=== PATIENT | female | born 1985 | race Two or more races ===

== ENCOUNTER 2018-12-10 11:37 | Emergency (ER) | payer BC, OTHER ==
[~2018-12-10] VITALS: Ht 162.6 cm; Wt 81.6 kg
[2018-12-10 11:37] VITALS: BP 121/81
[~2018-12-10 11:37] MED LIST: HYDR-1179 PO; HYDR-3165 PO
--- NOTE | 2018-12-10 12:09 | PHYS DOC ---
Past History Past Medical History: No Pertinent History Past Surgical History: No Surgical History Alcohol Use: Occasionally Drug Use: None Adult General Chief Complaint Chief Complaint: WRIST PAIN HPI HPI Patient is a 33-year-old female presents complaining of right wrist pain. It was injured at work approximately 5 days ago. Patient has been in a splint that has not seen a physician for this. She is been taking Motrin 800 mg without any significant relief. Increased pain with movement. Better with holding still but that does not eliminate all of the pain.[] Review of Systems Review of Systems Constitutional: Denies fever or chills [] Eyes: Denies change in visual acuity, redness, or eye pain [] HENT: Denies nasal congestion or sore throat [] Respiratory: Denies cough or shortness of breath [] Cardiovascular: No chest pain or palpitations[] GI: Denies abdominal pain, nausea, vomiting, bloody stools or diarrhea [] : Denies dysuria or hematuria [] Musculoskeletal: Denies back pain, see history of present illness[] Integument: Denies rash or skin lesions [] Neurologic: Denies headache, focal weakness or sensory changes [] Endocrine: Denies polyuria or polydipsia [] All other systems were reviewed and found to be within normal limits, except as documented in this note. Allergies Allergies Allergies Coded Allergies Type Severity Reaction Last Updated Verified No Known Drug Allergies 06/23/15 No Physical Exam Physical Exam Constitutional: Well developed, well nourished, no acute distress, non-toxic appearance. [] HENT: Normocephalic, atraumatic, bilateral external ears normal, oropharynx moist, no oral exudates, nose normal. [] Eyes: PERRLA, EOMI, conjunctiva normal, no discharge. [] Neck: Normal range of motion, no tenderness, supple, no stridor. [] Cardiovascular:Heart rate regular rhythm, no murmur [] Lungs & Thorax: Bilateral breath sounds clear to auscultation [] Abdomen: Not examined. [] Skin: Warm, dry, no erythema, no rash. [] Back: No tenderness, no CVA tenderness. [] Extremities: Tenderness in the distal right wrist. More on the volar aspect. No significant change with axial loading. No elbow tenderness. Normal opposition. FDS, FDP, and extensor mechanisms are intact. Patient is distally neurovascularly intact. A joint above and joined below the injury were evaluated and were normal. The other 3 extremities show: No tenderness, no cyanosis, no clubbing, ROM intact, no edema. [] Neurologic: Alert and oriented X 3, normal motor function, normal sensory function, no focal deficits noted. [] Psychologic: Affect normal, judgement normal, mood normal. [] EKG EKG [] Radiology/Procedures Radiology/Procedures PROCEDURE: WRIST 3V RIGHT Right wrist radiographs History: Right wrist pain for 4 days, heard a pop Comparison none Findings: 3 views of the right wrist are submitted. No acute fracture or dislocation is identified. Impression 1. No acute radiographic abnormality is identified.[] Course & Med Decision Making Course & Med Decision Making Pertinent Labs and Imaging studies reviewed. (See chart for details) ED course: Patient arrived, was placed in bed, and tolerated exam well. X-rays were obtained. The results were shared with the patient and family who voiced understanding. All questions were answered. Patient was discharged in improved condition. Medical decision making: There is no evidence of a fracture or dislocation. No evidence of neurologic, vascular, significant tenderness nor ligamentous injury at this time. Patient does have a splint of provided by her employer who also ordered an outpatient MRI for her. Do not see need for emergent MRI at this time.[] Dragon Disclaimer Dragon Disclaimer This electronic medical record was generated, in whole or in part, using a voice recognition dictation system. Departure Departure: Impression: Primary Impression: Right wrist sprain Disposition: 01 HOME, SELF-CARE Condition: IMPROVED Referrals: KRISTEN AGUILAR (PCP) Follow-up in 2 days Patient Instructions: Wrist Sprain with [facility] Additional Instructions: Follow-up with your regular doctor in 2 days. Keep the MRI appointment as sc heduled. Return to the ER if worsening discomfort or any other concerns. Scripts Hydrocodone Bit/Acetaminophen (NORCO 5-325 TABLET) 1 Each Tablet 1-2 TAB PO Q4-6HRS for severe pain, #20 TAB Prov: LEEANNE SANDRA DO 12/10/18 Meloxicam (MELOXICAM) 7.5 Mg Tablet 7.5 MG PO DAILY for PAIN, #20 TAB Prov: LEEANNE SANDRA DO 12/10/18 Problem Qualifiers Primary Impression: Right wrist sprain Encounter type: initial encounter Qualified Codes: S63.501A - Unspecified sprain of right wrist, initial encounter LEEANNE SANDRA DO Dec 10, 2018 12:09
[2018-12-10] MEDS ORDERED: HYDROcodone/APAP 5/325MG 1 TAB TABLET ONE (12:21)
--- NOTE | 2018-12-10 12:41 | RAD ---
Right wrist radiographs History: Right wrist pain for 4 days, heard a pop Comparison none Findings: 3 views of the right wrist are submitted. No acute fracture or dislocation is identified. Impression 1. No acute radiographic abnormality is identified.
[2018-12-10] MEDS ORDERED: HYDROcodone/APAP 5/325MG 1 TAB TABLET PO ONE (12:45)
[2018-12-10] MEDS ORDERED: MELO7.5T29 PO (13:00)
[2018-12-10] MEDS ORDERED: HYDR-3165 PO (13:00)
== END 2018-12-10 13:05 | disposition home or self-care (01) ==
LOC: ER 11:37
DX: S63.501A Unspecified sprain of right wrist, initial encounter (principal); X50.9XXA Other and unspecified overexertion or strenuous movements or postures, initial encounter; Y93.89 Activity, other specified; Y92.89 Other specified places as the place of occurrence of the external cause; Y99.0 Civilian activity done for income or pay
CPT/HCPCS: 73110; 99284

== ENCOUNTER 2020-03-29 20:42 | Emergency (ER) | payer BC ==
[~2020-03-29] VITALS: Ht 162.6 cm; Wt 81.6 kg
[~2020-03-29 20:42] MED LIST changes: +MELO7.5T29 PO
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
--- NOTE | 2020-03-29 21:57 | RAD ---
Right hand 3 views: Reason for examination: Hyperextension injury with index and middle finger pain. No acute fracture or dislocation is seen. Bone density is normal. No abnormal periosteal reaction is seen. Joint spaces appear to be maintained. IMPRESSION: No acute bony abnormality evident at the right hand. Electronically signed by: Maisha Larsen MD (03/29/2020 9:55 PM) [facility]
[2020-03-29 22:00] VITALS: BP 122/78
== END 2020-03-29 22:00 | disposition home or self-care (01) ==
LOC: ER 20:42
DX: S69.91XA Unspecified injury of right wrist, hand and finger(s), initial encounter (principal); E11.9 Type 2 diabetes mellitus without complications; X50.9XXA Other and unspecified overexertion or strenuous movements or postures, initial encounter; Y93.89 Activity, other specified; Y92.89 Other specified places as the place of occurrence of the external cause; Y99.8 Other external cause status
CPT/HCPCS: 29130; 73130; 99283

== ENCOUNTER 2020-06-15 13:28 | Emergency (ER) | payer BC, OTHER ==
[~2020-06-15] VITALS: Ht 162.6 cm; Wt 81.6 kg
[2020-06-15 13:28] VITALS: BP 137/96
--- NOTE | 2020-06-15 14:07 | PHYS DOC ---
Past History Past Medical History: Diabetes, Migraines Past Surgical History: Cholecystectomy Smoking: Cigarettes Alcohol Use: Occasionally Drug Use: None General Adult EDM: Chief Complaint: OTHER COMPLAINTS HPI: HPI: 34-year-old female presents for COVID-19 test. The patient was exposed for 5 days ago. The only symptom she has had for the last 1 and half days is a mild headache. She has a history of migraines so she did not think anything of this. Her employer has required her to get this test. They told her that she needed to come here and here only to get her test done. She was told not to go to the urgent care. Patient denies any other symptoms or complaints. Review of Systems: Review of Systems: Constitutional: Denies fever or chills Eyes: Denies change in visual acuity HENT: Denies nasal congestion or sore throat Respiratory: Denies cough or shortness of breath Cardiovascular: Denies chest pain or edema GI: Denies abdominal pain, nausea, vomiting, bloody stools or diarrhea : Denies dysuria Musculoskeletal: Denies back pain or joint pain Integument: Denies rash Neurologic: Headache. Denies focal weakness or sensory changes Endocrine: Denies polyuria or polydipsia Lymphatic: Denies swollen glands Psychiatric: Denies depression or anxiety Allergies: Allergies: Allergies Coded Allergies Type Severity Reaction Last Updated Verified No Known Drug Allergies 03/29/20 No Physical Exam: PE: Constitutional: Well developed, well nourished, obese, no acute distress, non- toxic appearance. [] HENT: Normocephalic, atraumatic, bilateral external ears normal, oropharynx moist, no oral exudates, nose normal. [] Eyes: PERRLA, EOMI, conjunctiva normal, no discharge. [] Neck: Normal range of motion, no tenderness, supple, no stridor. [] Cardiovascular:Heart rate regular rhythm, no murmur [] Lungs & Thorax: Bilateral breath sounds clear to auscultation [] Abdomen: Bowel sounds normal, soft, no tenderness, no masses, no pulsatile masses. [] Skin: Warm, dry, no erythema, no rash. [] Back: No tenderness, no CVA tenderness. [] Extremities: No tenderness, no cyanosis, no clubbing, ROM intact, no edema. [] Neurologic: Alert and oriented X 3, normal motor function, normal sensory function, no focal deficits noted. [] Psychologic: Affect normal, judgement normal, mood normal. [] Current Patient Data: Vital Signs: Vital Signs Date Time Temp Pulse Resp B/P (MAP) Pulse Ox O2 Delivery O2 Flow Rate FiO2 06/15/20 13:28 97.7 90 16 137/96 (110) 100 EKG: EKG: [] Radiology/Procedures: Radiology/Procedures: [] Heart Score: Risk Factors: Risk Factors: DM, Current or recent (<one month) smoker, HTN, HLP, family history of CAD, obesity. Risk Scores: Score 0 - 3: 2.5% MACE over next 6 weeks - Discharge Home Score 4 - 6: 20.3% MACE over next 6 weeks - Admit for Clinical Observation Score 7 - 10: 72.7% MACE over next 6 weeks - Early Invasive Strategies Course & Med Decision Making: Course & Med Decision Making Pertinent Labs and Imaging studies reviewed. (See chart for details) The patient's history and exam is benign. We have done the COVID-19 test as requested. She is stable for discharge at this time. [] Dragon Disclaimer: Dragon Disclaimer: This electronic medical record was generated, in whole or in part, using a voice recognition dictation system. Departure Departure: Impression: Primary Impression: Exposure to COVID-19 virus Disposition: 01 DC HOME SELF CARE/HOMELESS Condition: STABLE Referrals: KRISTEN AGUILAR (PCP) Additional Instructions: You have been tested for or diagnosed with COVID-19. It is an infection caused by a new type of coronavirus. COVID-19 will cause cold-like or mild flu symptoms in most. It can cause more severe symptoms like problems breathing in some. There is no treatment for COVID-19. The body will clear the infection over time. Self-care will help to ease discomfort. Steps to Take: Self-Care Rest as needed. Healthy habits may help you feel better. Steps include: Choose healthy foods including fruits and vegetables. Drink water throughout the day. Get plenty of sleep each night. If you smoke, try to quit. It may ease breathing. Avoid alcohol. Keep Others Healthy The virus can spread to others. Droplets are released every time you sneeze or cough. The droplets can get into the mouth, nose, or eyes of people near you and lead to infection. To lower the chances of spreading COVID-19 to others: Stay at home until your doctor has said it is safe to leave. If you tested positive this will mean staying isolated until both of the following are true: At least 7 days have passed since the start of illness. You are free of fever for at least 72 hours without the use of medicine. During this time: - Avoid public areas, events, or transportation. Do not return to work or school until your doctor has said it is safe to do so. - Call ahead if you need to go to a medical center. Let them know you may have COVID-19. It will help them guide you where to go. They may also ask you to wear a facemask when you come to the office. - If you call for emergency medical services, let them know you may have COVID- 19. While at home: - Try to avoid close contact with others. Stay about 6 feet away. - If possible, spend most of your time in a separate room from others. - Use a face mask if you will be in close contact with others such as sharing a room or vehicle. - Have someone wipe down common surfaces in the home. Use household cleat blanker every day on areas like doorknobs, counters, or sinks. - Cough or sneeze into a tissue. Throw the tissue away right after use. If a tissue is not available, cough or sneeze into your elbow. - Wash your hands often. Wash them after sneezing or coughing. Use soap and water and wash for at least 20 seconds. Alcohol based hand paper cleaner can be used if soap and water is not available. - Do not prepare food for others. Avoid sharing personal items like forks, spoons, or toothbrushes. - Avoid close contact with pets while you are sick. There is no evidence of the virus passing to pets. This is a safety step until more is known about this virus. Isolation can be frustrating. Social interaction can help. Keep in touch with friends and family through phone and tech options. You can still interact with others in your home, just keep a safe distance of about 6 feet. Follow-up: Your doctors office will check in with you to see if there are any changes in your health. You may be asked to keep track of symptoms to share with them. They will also let you know when you are clear to be in public again. Problems to Look Out For: Contact your doctor if your recovery is not going as you expect. Get emergency care if you have problems such as: - Trouble breathing - Nonstop chest pain or pressure - Changes in awareness, confusion, or problems waking - Lips or face have bluish color - Worsening of symptoms If you think you have an emergency, call for emergency medical services right away. As taken from [facility] VALERIY RAHMAN DO Jun 15, 2020 14:07
== END 2020-06-15 14:15 | disposition home or self-care (01) ==
LOC: ER 13:28
DX: G43.909 Migraine, unspecified, not intractable, without status migrainosus (principal); Z20.828 Contact with and (suspected) exposure to other viral communicable diseases; E11.9 Type 2 diabetes mellitus without complications; F17.210 Nicotine dependence, cigarettes, uncomplicated
CPT/HCPCS: 99283; C9803; U0003